=== PATIENT | male | born 1980 | race Caucasian/White ===

== ENCOUNTER 2024-10-29 10:41 | Outpatient (REF) | payer BC, SELFPAY ==
[2024-10-29 15:27] LABS: Anion Gap 10.1 mmol/L (3-11); BUN 9 mg/dL (7-18); CO2 27.9 mmol/L (21.0-32.0); Calcium 9.6 mg/dL (8.5-10.1); Calculated LDL 93 mg/dL (<100); Chloride 104 mmol/L (98-107); Cholesterol 164 mg/dL (<200); Estimated GFR 111.92 (mL/min/1.73m2); Glucose 93 mg/dL (74-106); HDL Cholesterol 53 mg/dL (>or=40); Potassium 3.8 mmol/L (3.5-5.1); Sodium 142 mmol/L (136-145); Triglyceride 94 mg/dL (<150)
== END 2024-10-29 10:42 | disposition home or self-care (01) ==
LOC: NCHCN 10:41
PROVIDERS: PCP Family Medicine; Visit Provider Family Medicine
DX: Z00.00 Encounter for general adult medical examination without abnormal findings (principal); K58.2 Mixed irritable bowel syndrome
CPT/HCPCS: 80048; 80061